=== PATIENT | male | born 1970 | race African-American/Black ===

== ENCOUNTER 2017-02-26 04:35 | Emergency (ER) | payer OTHER ==
[~2017-02-26] VITALS: Ht 198.1 cm; Wt 115.7 kg
[2017-02-26 04:35] VITALS: BP 138/87; PULSE 86; RESP 17; TEMP 98.1; O2SAT 100
--- NOTE | 2017-02-26 04:35 | NUR ---
Patient to ER bed 4 to gown for evaluation. Side rails up. Report given to Siva HARRIS/Solitario HARRIS.
--- NOTE | 2017-02-26 04:37 | NUR ---
ED MD Mckinley at bedside for medical evaluation.
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
--- NOTE | 2017-02-26 04:46 | NUR ---
Written and verbal consent obtained from patient for blood alcohol, name and verified by patient. Disinfected patient's skin with iodine that did not contain alcohol or other volatile organic compound. Collected the blood from the subject named by venipuncture, in the presence of Officer with badge number [id number]. Used a sterile, dry hypodermic needle and dry vacuum blood collection. The dry vacuum blood collection was supplied by the officer named above. Withdrew a specimen of blood from R AC of the subject named above. Inverted the blood tube several times to ensure that the preservative and anticoagulant were thoroughly mixed in the blood specimen. I initialed the blood tube label for identification. The labeled blood tube was handed directly to the Officer named above. The blood tube stopper remained in place while I had possession of the blood tube. The Officer placed tube into envelope and sealed it in my presence. Envelope initialed by myself and Officer named above. Patient tolerated well, bandage applied, and bleeding controlled.
--- NOTE | 2017-02-26 05:05 | NUR ---
Site cleansed with NS and betadine. Site measures approximately 1 inch x 1 inch. Nonadherant dressing with coband applied. Tetanus vaccination current.
--- NOTE | 2017-02-26 05:10 | NUR ---
Velcro volar splint applied to the left wrist. Positive radial pulse noted. Capillary refill <2 seconds. Patient has ability to move non-splinted digits. Has sensation present to affected site. Skin color within normal limits. Applied for pain management control.
[2017-02-26 05:20] VITALS: BP 138/87; PULSE 86; RESP 18; TEMP 98.1; O2SAT 100
--- NOTE | 2017-02-26 05:20 | NUR ---
Patient given written and verbal discharge instructions and verbalizes understanding. ER MD discussed with patient the results and treatment provided. Patient in stable condition. ID arm band removed. No Rx given. Patient educated on pain management and to follow up with PMD. Pain Scale 2/10. Opportunity for questions provided and answered.
== END 2017-02-26 05:20 ==
LOC: SED 04:35
DX: S60.211A Contusion of right wrist, initial encounter (principal); S60.212A Contusion of left wrist, initial encounter; F10.129 Alcohol abuse with intoxication, unspecified; V89.2XXA Person injured in unspecified motor-vehicle accident, traffic, initial encounter; W22.11XA Striking against or struck by driver side automobile airbag, initial encounter; Y93.89 Activity, other specified; Y92.89 Other specified places as the place of occurrence of the external cause; Y99.8 Other external cause status
CPT/HCPCS: 99284